=== PATIENT | male | born 1985 | race Caucasian/White ===

== ENCOUNTER 2019-11-09 14:02 | Inpatient (IN) | payer MEDICAID, SELFPAY ==
--- NOTE | 2019-11-09 14:10 | W.ED.GENAD ---
Discharge Plan Disposition Patient Disposition: STILL A PATIENT Condition: Poor Discharge Details Chief Complaint: PsychEval Clinical Impression: Unspecified psychosis, Borderline personality disorder, ADHD, Unspecified personality disorder Admit Date/Time: 11/12/19 08:30 Admit Provider: Asa Wallis Attending Provider: Asa Wallis Primary Care Provider: None,None ED Provider: Leodan Robb Discharge Data Discharge Date/Time-TO BE ENTERED AT DEPARTURE: 11/10/19 13:05 Medical Decision Making <Melissachristina Burtonton - Last Filed: 11/13/19 08:12> 1403: Spoke with Joanna who is a psych liaison with behavioral health she gave me a report on patient and that there has been multiple reports from residents and warehouse stock clerk regarding patient making statements of wanting to harm himself and others. He has been noncompliant with his medications he is only been taking his Wellbutrin per patient report. He is supposed to be taking seizure milligrams gabapentin 3 times daily and 1200 mg gabapentin nightly. He is also supposed be taking methadone, trazodone 100 mg nightly 1-2 as needed. And Trilafon which he is also not been taking. 34-year-old male who lives at a [place] [facility] presents for altered mental status he does have a strong mental health history including unspecified psychosis disorder unspecified borderline personality disorder ADHD and unspecified personality disorder. He was just recently admitted and discharged from [facility] on October 30, reports from residents and clin asst at [place] [facility] [place] include patient mumbling and cussing about people on Facebook and people wanting to kill him. Another resident stated red alert patient was out shouting at someone that was not there the warehouse stock clerk states that the patient was stating that he wanted to rape underage girls in region to his middle and tear him in half another resident quoted patient stating that he wanted to take my rib out and make it into a shank the warehouse stock clerk feels unsafe and feels that this patient is a danger to himself and others. There is also question that he has not been taking his medications as prescribed. He is prescribed trazodone 100 mg nightly 1-2 as needed, Wellbutrin daily, 600 mg gabapentin 3 times daily and 1200 mg of gabapentin nightly and Trilafon which patient is not taking. Upon initial exam patient is denying wanting to harm himself or others, he is denying any auditory or visual hallucinations. He states that he is only taking Wellbutrin at this time. He states that he is not taking the gabapentin or any of the other medications because they are not working. He states that the residents at the treatment facility are talking crap, it is getting out of hand and I am done with it at this time he is cooperative and willing to have blood drawn and have testing done at this time. Labs ordered in order to medically clear patient, behavioral health consult ordered and CPS so sitter ordered. There is a sitter at the bedside at this time. Room is in line of sight nurses station and doors open. Patient did agree to get into a gown/paper scrubs. [facility] KARI Hargrove pending medical clearance and psych evaluation. At the time of this dictation patient was cooperative and calm and hemodynamically stable. <KARI Loja - Last Filed: 11/09/19 22:25> Care was transitioned myself from Pallavi Dimas NP. Please see her initial note regarding presentation, exam and clinical course. Patient's remaining labs are back. Urine has been pending at the time of transfer of care. I am relieved to see that the patient is positive for methadone. He is likely taking the medications if he was initially denying. Patient is also positive for tricyclics. There is unclear what medications the patient had been taking. She continues to be cooperative. Will consult with mental health. One-to-one monitoring is still being performed. Spoke with Joanna again. She had spoken with home care providers. There were multiple episodes of concern including patient talking to people that were not there, not taking medications, instigating altercations with housemates, threatening others, threatening to rape underage girls. Patient escalated to the point that staff did not feel safe to be in the house. While patient is behaving well while here, these witnessed acts and threats are certainly concerning. Patient does have a lengthy psychiatric history. Joanna will call to evaluate the patient but does feel that inpatient treatment would be most appropriate for him. advised that patient is currently voluntarily staying and seeking help. However, should he become unwilling to seek care, we will need to EE him. I was able to listening on the mental health evaluation and the patient did escalate quite quickly when the allegations against him were discussed. He did threaten to rape those men. Shortly after being on the phone, I did evaluate the patient and continues to be resting comfortably. He is eating and drinking, pleasant with staff here. [facility] and [facility] are excepting referrals. Information was sent to their facilities. Patient requesting nicotine gum. Patient reports she has been tired but also agitation needs assistant customer service manager with sleep. 1 mg Ativan given. Despite the Ativan, patient continues to request further medication, 50 mg Benadryl ordered. Despite the above, patient continues to improve and was requesting further assistance with sleep. Patient typically takes 100 mg trazodone nightly. Will prescribe this. Consulted with Dr. Wallis who agrees to admission. He is requested that I place holding orders. Patient will be transferred upstairs with CPS O. Still awaiting callback from referral centers. Patient continues to be voluntary admission to psychiatric facility. <Ran Jackson MD - Last Filed: 11/10/19 07:36> due to staffing issues patient could not go upstairs until the morning. He slept all night and was stable throughout. Discussed with Dr. Wallis and made him aware that he would go upstairs at shift change at 7am. <Leodan Robb MD - Last Filed: 11/10/19 13:40> 34-year-old male signed out to me at change of shift by Dr. Jackson. Patient is awaiting voluntary placement after erratic behavior at [place]. He was signed out pending a COVID screening which has not been sent. It will be sent this morning.. The patients medications were confirmed with the [facility] clinic including Methadone 110mg QD. Allergies to triptans. Patient states to me that the reason he is here is that all his medications are shit. He at times exhibits tangential thoughts. After his morning interview with mental health, patient being agitated and was given an additional dose of lorazepam. He will be admitted to the hospital pending further disposition. HPI <Melissa Acuña - Last Filed: 11/13/19 08:12> General Mode of arrival: ambulatory. Date/Time Provider Initiated Documentation: 11/09/19 14:07. Limitations to Documentation: altered mental status. History of Present Illness described as severe, HPI Narrative: 34-year-old male who lives at [place] presents for altered mental status he does have a strong mental health history including unspecified psychosis disorder unspecified borderline personality disorder ADHD and unspecified personality disorder. He was just recently admitted and discharged from [facility] on October 30, reports from residents and clin [place]st [place] [facility] [place] include patient mumbling and cussing about people on Facebook and people wanting to kill him. Another resident stated red alert patient was out shouting at someone that was not there the warehouse stock clerk states that the patient was stating that he wanted to rape underage girls in region to his middle and tear him in half another resident quoted patient stating that he wanted to take my rib out and make it into a shank the warehouse stock clerk feels unsafe and feels that this patient is a danger to himself and others. There is also question that he has not been taking his medications as prescribed. He is prescribed trazodone 100 mg nightly 1-2 as needed, Wellbutrin daily, 600 mg gabapentin 3 times daily and 1200 mg of gabapentin nightly and Trilafon which patient is not taking. Upon initial exam patient is denying wanting to harm himself or others, he is denying any auditory or visual hallucinations. He states that he is only taking Wellbutrin at this time. He states that he is not taking the gabapentin or any of the other medications because they are not working. He states that the residents at the treatment facility are talking crap, it is getting out of hand and I am done with it at this time he is cooperative and willing to have blood drawn and have testing done at this time. Related Data Home Medications Medication Instructions Recorded Confirmed Trilafon 4 mg PO DAILY 11/10/19 Trilafon 8 mg PO .QHS 11/10/19 albuterol sulfate BID PRN 11/10/19 bupropion HCl 300 mg PO DAILY 11/10/19 11/10/19 gabapentin 1,200 mg PO .QHS 11/10/19 11/10/19 gabapentin 600 mg PO TID 11/10/19 11/10/19 ibuprofen 600 mg PO PRN PRN 11/10/19 11/10/19 loratadine 10 mg PO DAILY 11/10/19 11/10/19 methadone 110 mg PO DAILY 11/10/19 11/10/19 nicotine (polacrilex) mg 11/10/19 perphenazine 2 PO .QHS 11/10/19 trazodone 100 mg PO .QHS 11/10/19 11/10/19 Allergies Allergy/AdvReac Type Severity Reaction Status Date / Time haloperidol [From Haldol] Allergy Hives Unverified 11/09/19 14:19 Review of Systems <Melissa Burtonton - Last Filed: 11/13/19 08:12> Narrative: Constitutional: Negative for weight loss, alert and oriented, well groomed, normal body habitus, appears anxious. HEENT: Denies trauma, headaches, blurry vision, nasal discharge, sore throat, trouble swallowing. Chest: Denies chest pain, palpitations, irregular rhythm, hypertension. Respiratory: Denies Shortness of breath, cough, hemoptysis. GI: Denies abdominal pain, vomiting, diarrhea, constipation. Reports upset stomach : Denies dysuria, hematuria, flank pain, rectal bleeding. Neuro: Denies dizziness, blurry vision, weakness, syncope, headache or facial numbness. Hematologic: Denies easy bruising, intolerance to heat or cold, hair loss. Psychiatric Psychiatric: Reports anxiety, Denies auditory hallucinations (Denies), Reports irritability, Denies visual hallucinations (Denies), Reports homicidal ideation (Denies) and Reports suicidal ideation (Denies) [facility] <Melissa Burtonton Last Filed: 11/13/19 08:12> Social History Smoking/Tobacco Use Status: Current every day Tobacco Type: cigarettes Alcohol Intake: never Do you feel safe at home: Yes Additional Social history: [place] Exam [facility] Filed: 11/13/19 08:12> Narrative Exam Narrative: Constitutional: Alert and oriented x3. Appears stated age. Normal body habitus. Appears anxious is standing in the room not sitting on the bed. Head: Normocephalic, no trauma. Eyes: Pupils PERRLA, Red reflex noted, EOM's intact. Eyelids symmetrical without lesions, discharge, or swelling. ENT: Bilateral TM's WNL, External ear normal to inspection, no mastoid TTP, swelling, or erythema, Nasal turbinates WNL, no nasal discharge. Normal dentition, Posterior pharynx WNL, no exudate. Chest: RRR, Normal S1, S2, distal pulses intact. Resp: Lungs clear to auscultation bilaterally, no wheezes, rales, or rhonchi. Musculoskeletal: Normal gait, 5/5 strength to all four extremities. Skin: No suspicious rashes or lesions. Capillary refill less than 2 sec. Neurologic: Cranial nerves II-XII intact. Alert and oriented x 3. DTR's intact. Hematologic/Lymphatic: No ecchymosis, no lymphadenopathy. Psych Appearance: well kempt Speech and Movement: restless Mood: anxious mood Affect: anxious affect Attitude: cooperative and guarded Thought Content: no hallucinations, no homicidality, no phobias, suicidality and other (Bystander reports of statements regarding harm to himself and others) Other: History of unspecified psychotic disorder, unspecified borderline personality disorder, ADHD, unspecified personality disorder. Sign Out <Melissa Acuña - Last Filed: 11/13/19 08:12> Sign Out Data: Sign Out Comment: Pending medical clearance and psychiatric evaluation. Last updated by Melissa Acuña at 11/09/19 16:08
[2019-11-09 14:12] VITALS: BP 142/88; PULSE 101; RESP 18; TEMP 36.9; O2SAT 97
[2019-11-09 15:19] LABS: Abs Immature Grans 0.02 k/cumm (0.0-0.09); Absolute Basophil Count 0.05 k/cumm (0.0-0.2); Absolute Eosinophil Count 0.15 k/cumm (0.0-0.7); Absolute Lymphocyte Count 2.27 k/cumm (1.2-3.4); Basophils % 0.4; Eosinophils % 1.3; HCT 43.3 % (40.0-50.0); HGB 14.8 g/dL (13.5-17.5); Immature Grans % 0.2 %; Lymphocytes % 19.4; Mean Corp. HGB Concentration 34.2 g/dL (32.0-36.0); Mean Corpuscular Hemoglobin 29.4 pg (27.0-33.0); Mean Corpuscular Volume 86.1 fL (80-95); Mean Platelet Volume 9.6 fL (8.0-11.0); Monocytes % 10.9; Neutrophils % 67.8; Platelet Count 337 x1000/uL (130-400); RBC 5.03 m/cumm (4.50-6.00); RBC Distribution Width 13.3 % (11.8-14.1)
[2019-11-09 15:33] LABS: Absolute Monocyte Count 1.28 k/cumm (0.11-0.7); Absolute Neutrophil Count 7.93 k/cumm (1.2-6.7)
[2019-11-09 15:35] LABS: ALT 78 U/L (16-63); AST 39 U/L (15-37); Albumin 4.2 g/dL (3.4-5.0); Alkaline Phosphatase 94 U/L (46-116); Anion Gap 7.1 mmol/L (3-11); BUN 7 mg/dL (7-18); Bilirubin, Total 0.3 mg/dL (0.2-1.0); CO2 29.9 mmol/L (21.0-32.0); CREATININE 1.17 mg/dL (0.70-1.30); Chloride 98 mmol/L (98-107); Glucose 147 mg/dL (74-106); Potassium 3.8 mmol/L (3.5-5.1); Sodium 135 mmol/L (136-145); Total Protein 8.6 g/dL (6.4-8.2)
--- NOTE | 2019-11-09 15:49 | CMSP_ITS ---
- If Service Date Differs Date of service: 11/09/19 Time of Service: 15:49 Care Management Safety Plan Complaint: Jose is a 34 year old male who is brought to the emergency department by [facility] due to suicidal and homicidal ideation. Jose was reportedly recently discharged home from the [facility] on October 31, 2019. Since his return from the [place], he has been non-compliant with medications, and has been hearing voices, making suicidal and homicidal statements, and having urges to rape young girls. Jose met with Joanna, [facility] crisis screener, in the community earlier this afternoon but he refused to engage with Joanna. He will be re-evaluated once medically cleared. VOLUNTARY FOR INPATIENT PSYCHIATRIC STABILIZATION. Patient is appropriate in all interactions since arriving at [facility]; Patient has demonstrated appropriate coping and communication skills, has articulated his needs and concerns and is fully engaged during staff interactions. Safety plan has been established with patient, and care team, to adhere to patient goals, identify restrictions based on behavioral status, address nutrition, and determine allowed personal belongings, tools for hygiene and personal care. Determine level of activity including ambulation, level of supervision, visitors, and determine privileges based on behaviors and level of engagement by patient. SAFETY PLAN: 1. Will remain on suicide precautions and in paper clothes 2. Will remain in room under direct supervision of one-on-one staff at all times provided by [employer]; FISH, TECHNICAL OPERATIONS SPECIALIST implementation project coordinator. 3. May have paper cups, plates, finger foods as well as a cardboard spoon with which to eat meals. 4. Follow [facility] Management of the Admitted Behavioral Health Patient policy. 5. Comfort bath system only. 6. No personal belongings 7. Visitors-No visitors at this time 8. Activities: None at this time. 9. Bathroom privileges: While in the ED, must be accompanied by staff. If patient is moved to Med/Surg, he will be allowed to use the bathroom in his room without supervision. 10. Phone: No phone privileges at this time. 11. Due to VOLUNTARY status, if patient wishes to leave [facility], the [facility] rodent control worker must be contacted to re-evaluate patient prior to patient exiting the building. Patient is currently voluntarily at [facility] and seeking inpatient admission when a bed becomes available. [facility] Frontline Glaucoma Specialist will continue seeking placement. Please contact the Security Engineer Admeasurer ([phone]) and [facility] Glaucoma Specialist ([phone]) for any needed changes in the Safety Plan. Safety plan has been provided to interdepartmental care team.
[2019-11-09 15:51] LABS: ETHANOL BLOOD < 3.0 mg/dL (<3)
[2019-11-09 15:59] LABS: Salicylate 5.3 mg/dL (2.8-20.0)
[2019-11-09 16:18] LABS: Acetaminophen < 2 ug/mL (10-30)
[2019-11-09 16:25] LABS: Bilirubin Small (Negative); Blood Negative (Negative); Clarity Clear (Clear); Glucose Negative (Negative); Ketones 15 mg/dL (Negative); Leukocyte Esterase Negative (Negative); Nitrite Negative (Negative); Specific Gravity >= 1.030 (1.005-1.025)
[2019-11-09 16:34] LABS: *AMPHETAMINES SCREEN URINE Negative (Negative); *BARBITURATES SCREEN URINE Negative (Negative); *BENZODIAZEPINES SCREEN URINE Negative (Negative); Cannabinoids THC Negative (Negative); Cocaine Screen,Urine Negative (Negative); METHADONE URINE SCREEN POSITIVE (Negative); OPIATES URINE SCREEN Negative (Negative)
[2019-11-09 16:37] LABS: Tricyclic Antidepressants POSITIVE (Negative)
[2019-11-09 16:50] LABS: Bacteria Negative HPF (Negative); C & S Indicated? No; Casts Negative LPF (Negative); Crystals Few Calcium Oxalate HPF (Negative); Epithelial Cells Negative HPF (Negative); Mucus Moderate (Negative); RBC Negative HPF (0-2); WBC 0-2 HPF (0-5)
--- NOTE | 2019-11-09 17:22 | PDOC.MHCN_ITS ---
Date of service: 11/09/19 Time of Service: 17:22 Mental Health Crisis Note Presenting Issue How did you arrive at the ED and why did you come: Assessment started at pm. Kyra arrived to the ER today voluntarily through [facility] after [facility] received concerning calls and text messages that he was making threats to harm other people including raping an unidentified minor child and yelling at unknown people (internal stimuli). Kyra is reported to have not been taking his prescribed medication. Precipitating Factors Kyra is denying SI and HI as well as all allegations made today. There are no observed signs of delusions. Disposition BEHAVIOR: Kyra is agitated and verbally aggressive. He questions this workers ability to do her job and then thanks this worker you did a good job. He makes current threats that maybe I should rape some of the dudes who won't stop agitating me. EYE CONTACT: Initial eye contact was good but quickly it changed when he was not happy with the conversation and then he just set the Ipad down on the bed. MOOD: Agitated, verbally aggressive and threatening. AFFECT: flat affect and angry. APPETITE: Per D's report Not good. SLEEP(trouble falling/staying asleep: Per D's report Not good. Plan This clinician informed Kyra that I had concerns and was not comfortable with him returning to his residence at this time. I offered him a voluntary admission to a hospital which he agreed to. If he changes his mind he was informed that EE papers will be written. I called Vilma Motta and informed her that Kyra was willing to go voluntarily and if he changes his mind we intend to write an EE. I informed her that this note was being written as we speak. She asked if we had Kyra's insurance information and this was shared with her. She denied needing any thing else at this time. Signature Clinician's Name/Title: Jaonna Jhaveri MS, [facility] Emergency Services Clinician
[2019-11-09 21:00] VITALS: BP 138/76; PULSE 91; RESP 18; TEMP 36.8; O2SAT 98
--- NOTE | 2019-11-09 21:17 | PDOC.MHCN_ITS ---
Date of service: 11/09/19 Time of Service: 21:18 Mental Health Crisis Note Presenting Issue How did you arrive at the ED and why did you come: Patient was brought to ER earlier today by [facility] Police Departement due to escalating erratic behaviors and threats. Precipitating Factors It was noted that he had no SI or Hi. Plan This note is to follow up on calls to hospitals for placements. All hospitals notified and [facility] had possible opening beds available. ER staff was contacted and necessary paperwork was being faxed for disposition. Signature Clinician's Name/Title: LISA Grayson [facility] Emergency Services Clinician
[2019-11-09] MEDS: Nicotine 4 MG GUM (21:18)
[2019-11-09] MEDS: Nicotine 4 MG GUM CH (21:47)
[2019-11-09] MEDS: LORazepam 1 MG TAB PO ×2 (21:50→22:52)
[2019-11-09] MEDS: diphenhydrAMINE 25 MG CAP 50 MG PO (22:12)
[2019-11-09] MEDS: OLANZapine 5 MG TAB (23:08)
[2019-11-09] MEDS: traZODone 100 MG TAB PO (23:09)
--- NOTE | 2019-11-10 06:16 | HPE_ITS ---
Date of service: 11/10/19 Time of Service: 06:16 Assessment and Plan Assessment and plan (1) Unspecified psychosis: Status: Acute Assessment and plan: Unspecified psychiatric disturbance. Will await tra nsfer to facility. Will hold on med regimen pending psych eval, prn Ativan for now History of Present Illness History of Present Illness Chief Complaint: combative behavior Narrative: 34 male with multiple psychiatric dxx, just d/c'ed from [facility]. Brought in due to combative and threatening behaviors. Apparently non-compliant with meds. In ER medically cleared, no beds available, held here in ER pending bed here and then pending transfer. Given Ativan, Bednadryl and Trazadone, has been resting quietly since Review of Systems Unobtainable due to mental status [facility] Social History Smoking/Tobacco Use Status: Current every day Tobacco Type: cigarettes Alcohol Intake: never Do you feel safe at home: Yes Additional Social history: patient lives in a jail Meds Home Medications and Allergies Allergies Allergy/AdvReac Type Severity Reaction Status Date / Time haloperidol [From Haldol] Allergy Hives Unverified 11/09/19 14:19 Exam Narrative Exam Narrative: 136/76,91,18, 36.8, 98% RA. HEENT atraumatic; neck supple; lungs clear; heart RRR; abdomen soft and NT extremities w/o edema; neuro sleeping, awakens briefly to voice, moves all 4s Results Labs Result diagrams: 11/09/19 15:05 11/09/19 15:05 Labs: Laboratory Results - last 24 hr 11/09/19 11/09/19 11/09/19 15:05 15:05 15:05 WBC 11.70 H RBC 5.03 Hgb 14.8 Hct 43.3 MCV 86.1 MCH 29.4 MCHC 34.2 RDW 13.3 Plt Count 337 MPV 9.6 Immature Gran % 0.2 Neutrophils % 67.8 Lymphocytes % 19.4 Monocytes % 10.9 Eosinophils % 1.3 Basophils % 0.4 Absolute Neutrophils 7.93 H Absolute Lymphocytes 2.27 Absolute Monocytes 1.28 H Absolute Eosinophils 0.15 Absolute Basophils 0.05 Sodium 135 L Potassium 3.8 Chloride 98 Carbon Dioxide 29.9 Anion Gap 7.1 BUN 7 Creatinine 1.17 Estimated GFR/1.73 m2 >= 60.00 Glucose 147 H Calcium 9.0 Total Bilirubin 0.3 AST 39 H ALT 78 H Alkaline Phosphatase 94 Total Protein 8.6 H Albumin 4.2 TSH 0.70 Urine Color Urine Clarity Urine pH Ur Specific Marshall Urine Protein Urine Ketones Urine Blood Urine Nitrite Urine Bilirubin Urine Urobilinogen Ur Leukocyte Esterase Urine RBC Urine WBC Ur Epithelial Cells Urine Crystals Urine Bacteria Urine Casts Urine Mucus Ur Culture Indicated? Urine Glucose Salicylates 5.3 Urine Opiates Screen Urine Methadone Screen Acetaminophen < 2 Ur Barbiturates Screen Ur Tricyclics Screen Ur Amphetamines Screen U Benzodiazepines Scrn Urine Cocaine Screen Ur THC Screen Ethyl Alcohol < 3.0 11/09/19 11/09/19 15:50 15:50 WBC RBC Hgb Hct MCV MCH MCHC RDW Plt Count MPV Immature Gran % Neutrophils % Lymphocytes % Monocytes % Eosinophils % Basophils % Absolute Neutrophils Absolute Lymphocytes Absolute Monocytes Absolute Eosinophils Absolute Basophils Sodium Potassium Chloride Carbon Dioxide Anion Gap BUN Creatinine Estimated GFR/1.73 m2 Glucose Calcium Total Bilirubin AST ALT Alkaline Phosphatase Total Protein Albumin TSH Urine Color Yellow Urine Clarity Clear Urine pH 6.0 Ur Specific Marshall >= 1.030 H Urine Protein 30 H Urine Ketones 15 H Urine Blood Negative Urine Nitrite Negative Urine Bilirubin Small H Urine Urobilinogen 2.0 H Ur Leukocyte Esterase Negative Urine RBC Negative Urine WBC 0-2 Ur Epithelial Cells Negative Urine Crystals Few calcium oxalate Urine Bacteria Negative Urine Casts Negative Urine Mucus Moderate Ur Culture Indicated? No Urine Glucose Negative Salicylates Urine Opiates Screen Negative Urine Methadone Screen Positive A Acetaminophen Ur Barbiturates Screen Negative Ur Tricyclics Screen Positive A Ur Amphetamines Screen Negative U Benzodiazepines Scrn Negative Urine Cocaine Screen Negative Ur THC Screen Negative Ethyl Alcohol Last Vital Signs Temp 36.8 C 11/09/19 21:00 Pulse 91 H 11/09/19 21:00 Resp 18 11/09/19 21:00 BP 138/76 11/09/19 21:00 Pulse Ox 98 11/09/19 21:00 COVID-19 Screening In the past 14 days, have you traveled outside of [place] or [place]?: NO Had IN PERSON contact w/suspected or confirmed C-19 person: No
[2019-11-10] MEDS: LORazepam 1 MG TAB PO ×5 (08:27→21:05)
[2019-11-10] MEDS: Methadone Liquid 10 MG/ML 110 MG PO (10:10)
[2019-11-10] MEDS: Nicotine 4 MG GUM CH ×3 (12:22→21:05)
--- NOTE | 2019-11-10 13:02 | NUR.NOTE ---
pt refusing to have vs taken. :
[2019-11-10 13:16] VITALS: BP 129/91; PULSE 117; RESP 18; TEMP 36.3; O2SAT 98
--- NOTE | 2019-11-10 13:27 | PDOC.MHCN ---
Date of service: 11/10/19 Time of Service: 12:00 Mental Health Crisis Note Presenting Issue How did you arrive at the ED and why did you come: Patient has been in ED since yesterday and has been on an EE. This clinician visited with him by zoom today to evaluate how he is. He reports he still is angry with his house mates but he does want to get his medications straightened out and is waiting for placement in a psychiatric facility. Precipitating Factors Patient denies SI and HI today but he still alludes to wanting to hurt a housemate. He is delusional, feels that his medication is changing his body. He took off his shirt to show how he hates what is happening and how he is blown up from his medication. Disposition BEHAVIOR: He is calm and oriented to place , at first but his attitude escalates to swearing and yelling after a bit. He is angry and verbally agressive. EYE CONTACT: He varies from looking at the screen to putting it facing toward the ceiling. MOOD: Varies from calm to angry and hostile. AFFECT: His affect is calm at first ant then he gets irritated quickly. APPETITE: He reports he is eating well. SLEEP(trouble falling/staying asleep: He has slept the night. Plan Hospitals have been called and he is being considered at [facility] and [facility] who all indicated there are beds available. Those hospitals have been contacted by this clinician and he is under review at this time. This was reported to Vilma Motta, Hospital Nurse. This clinician will check in with hospitals again today for placement status Provisional Diagnosis Signature Clinician's Name/Title: Doreen Valencia [facility] Emergency Services Clinician
[2019-11-10] MEDS: Gabapentin 600 MG TAB PO (14:57)
--- NOTE | 2019-11-10 17:44 | PDOC.CMSAFE ---
- If Service Date Differs Date of service: 11/10/19 Time of Service: 17:44 Care Management Safety Plan Chief Complaint: Jose remains at [facility] awaiting a voluntary psych placement. He has been calm, cooperative, and sleeping most of the day. attempts to meet with him twice and he is either sleeping or too drowsy to engage in conversation for more than a minute. Referrals have been sent to [facility], [facility], and [facility] for review. There are no available beds today, so Jose will remain at [facility] while [facility] continues to seek placement. VOLUNTARY FOR INPATIENT PSYCHIATRIC STABILIZATION. Patient is appropriate in all interactions since arriving at [facility]; Patient has demonstrated appropriate coping and communication skills, has articulated his needs and concerns and is fully engaged during staff interactions. Safety plan has been established with patient, and care team, to adhere to patient goals, identify restrictions based on behavioral status, address nutrition, and determine allowed personal belongings, tools for hygiene and personal care. Determine level of activity including ambulation, level of supervision, visitors, and determine privileges based on behaviors and level of engagement by patient. SAFETY PLAN: 1. Will remain on suicide precautions and in paper clothes 2. Will remain in room under direct supervision of one-on-one staff at all times provided by [employer]; FISH, AIR BOX TESTER children's service supervisor. 3. May have paper cups, plates, finger foods as well as a cardboard spoon with which to eat meals. 4. Follow [facility] Management of the Admitted Behavioral Health Patient policy. 5. Comfort bath system only. 6. No personal belongings 7. Visitors-No visitors at this time 8. Activities: Television allowed at nursing discretion. [employer] to have possession and control of the remote. 9. Bathroom privileges: Allowed to use the bathroom in his room without supervision. 10. Phone: No phone privileges at this time. 11. Due to VOLUNTARY status, if patient wishes to leave [facility], the [facility] sub assembly team worker must be contacted to re-evaluate patient prior to patient exiting the building. Patient is currently voluntarily at [facility] and seeking inpatient admission when a bed becomes available. [facility] Frontline Crematory Attendant will continue seeking placement. Please contact the Library Helper [employer] Specialists ([phone]) and [facility] Crematory Attendant ([phone]) for any needed changes in the Safety Plan. Safety plan has been provided to interdepartmental care team.
[2019-11-10] MEDS: traZODone 100 MG TAB PO (20:52)
[2019-11-10] MEDS: diphenhydrAMINE 25 MG CAP PO (21:05)
[2019-11-11] MEDS: Methadone Liquid 10 MG/ML 110 MG PO (08:32)
[2019-11-11] MEDS: LORazepam 1 MG TAB PO ×4 (08:40→22:40)
[2019-11-11] MEDS: Nicotine 4 MG GUM CH ×8 (08:59→22:39)
--- NOTE | 2019-11-11 09:04 | PHA.REVIEW ---
Pharmacy Admission Review - Admission Clinical Review (Last Reviewed 11/10/19 @ 06:19 by Asa Wallis MD) Unspecified personality disorder (Acute) ADHD (Acute) Borderline personality disorder (Acute) Unspecified psychosis (Acute) haloperidol [From Haldol] Allergy (Unverified 11/09/19 14:19) Hives Height 5 ft 7 in Weight 108.862 kg - Renal Dosing Renal Dosing: BUN 7 mg/dL (7-18) 11/09/19 15:05 Creatinine 1.17 mg/dL (0.70-1.30) 11/09/19 15:05 Medications needing adjustments: Reviewed (Crcl ~105.7 mL/min using adjusted body weight, current meds okay) - Anticoagulation Anticoagulation: Hgb 14.8 g/dL (13.5-17.5) 11/09/19 15:05 Hct 43.3 % (40.0-50.0) 11/09/19 15:05 Plt Count 337 x1000/uL (130-400) 11/09/19 15:05 Creatinine 1.17 mg/dL (0.70-1.30) 11/09/19 15:05 DVT Prohphylaxis: N/A Therapeutic Anticoagulation: N/A - Opiate Usage Evaluate Pain Scale/Pains Meds: Reviewed Scheduled Bowel Reg ordered if on Opiates?: No (will mention to RETURN TO SERVICE INSPECTOR) - Relevant Labs Sodium 135 mmol/L (136-145) L 11/09/19 15:05 Potassium 3.8 mmol/L (3.5-5.1) 11/09/19 15:05 Chloride 98 mmol/L (98-107) 11/09/19 15:05 Electrolytes, C-Reactive P, ESR: Reviewed - DM Control DM Control: Glucose 147 mg/dL (74-106) H 11/09/19 15:05 Insulin Dosing: N/A - Heart Failure/NE EF%, ANJELICA's, B-Blockers, Diuretics: N/A - BP Control If elevated: N/A - Qtc Review If Elevated: N/A - IV to PO Switch IV Medications: N/A - Home Meds Home Med List reviewed: Reviewed (multiple HEALTHCARE EDUCATOR depressants: gabapentin, loratadine, methadone, perphenazine, trazodone. Avoid concomitant use of HEALTHCARE EDUCATOR depressants when possible; if combined limit dosages and duration when possible and monitor closely for adverse effects. Bupropion may decrease the metabolism of perphenazine; consider alternatives or dosage adjustments and monitor for adverse effects.) Relevent Home Meds Not ordered & why?: albuterol (PRN), ibuprofen (PRN) - Current meds Current Medication Order Review: Intervened (discontinued DM orders) - Comments Comments/Follow Ups: waiting for placement
[2019-11-11 09:13] VITALS: BP 128/96; PULSE 133; RESP 18; TEMP 36.9; O2SAT 97
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
[2019-11-11 09:40] VITALS: PULSE 109
--- NOTE | 2019-11-11 11:07 | CMSP_ITS ---
- If Service Date Differs Date of service: 11/11/19 Time of Service: 11:08 Care Management Safety Plan VOLUNTARY FOR INPATIENT PSYCHIATRIC STABILIZATION. Patient is appropriate in all interactions since arriving at [facility]; Patient has demonstrated appropriate coping and communication skills, has articulated his needs and concerns and is fully engaged during staff interactions. 11/11/2019 - Revised Safety plan has been established with patient, and care te am, to adhere to patient goals, identify restrictions based on behavioral status, address nutrition, and determine allowed personal belongings, tools for hygiene and personal care. Determine level of activity including ambulation, level of supervision, visitors, and determine privileges based on behaviors and level of engagement by patient. SAFETY PLAN: 1. Will remain on suicide precautions and in paper clothes 2. Will remain in room under direct supervision of one-on-one staff at all times provided by [employer]; FISH, SALESPERSON CORSETS match up worker. 3. May have paper cups, plates, finger foods as well as a cardboard spoon with which to eat meals. 4. Follow [facility] Management of the Admitted Behavioral Health Patient policy. 5. May take a shower with supervision. 6. No personal belongings 7. Visitors-No visitors at this time 8. Activities: Television allowed at nursing discretion. [employer]PSO to have possession and control of the remote. 9. Bathroom privileges: Allowed to use the bathroom in his room without supervision. 10. Phone: No phone privileges at this time. 11. Due to VOLUNTARY status, if patient wishes to leave [facility], the [facility] Crisis w orker must be contacted to re-evaluate patient prior to patient exiting the building. Patient is currently voluntarily at [facility] and seeking inpatient admission when a bed becomes available. [facility] Frontline Floor Trader will continue seeking placement. Please contact the [employer] Se[employer] Plant Manager Transit Specialist ([phone]) and [facility] Floor Trader ([phone]) for any needed changes in the Safety Plan. Safety plan has been provided to interdepartmental care team.
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
[2019-11-11 14:21] LABS: COVID-19 RT-PCR UVMMC Result Negative (Negative)
[2019-11-11 16:02] VITALS: BP 141/91; PULSE 117; RESP 20; TEMP 36.8; O2SAT 94
--- NOTE | 2019-11-11 16:15 | W.INMHPGNOTE ---
Date of service: 11/11/19 Time of Service: 09:35 Mental Health Crisis Note Presenting Issue How did you arrive at the ED and why did you come: Patient KERON has been in hospital in ER since Tuesday and he is now on the med surg floor, second floor .
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
[2019-11-11] MEDS: Gabapentin 600 MG TAB PO (18:49)
[2019-11-11] MEDS: traZODone 100 MG TAB PO (22:40)
[2019-11-12 00:10] VITALS: BP 130/92; PULSE 112; RESP 20; TEMP 36.2; O2SAT 97
[2019-11-12] MEDS: LORazepam 1 MG TAB PO ×4 (08:08→22:43)
[2019-11-12] MEDS: Nicotine 4 MG GUM CH ×6 (08:09→20:30)
--- NOTE | 2019-11-12 08:45 | PDOC.CMSAFE ---
- If Service Date Differs Date of service: 11/12/19 Time of Service: 11:00 Care Management Safety Plan VOLUNTARY FOR INPATIENT PSYCHIATRIC STABILIZATION. Patient is appropriate in all interactions since arriving at [facility]; Patient has demonstrated appropriate coping and communication skills, has articulated his needs and concerns and is fully engaged during staff interactions. 11/12/2019 - Safety plan has been established with patient, and care team, to adhere to patient goals, identify restrictions based on behavioral status, address nutrition, and determine allowed personal belongings, tools for hygiene and personal care. Determine level of activity including ambulation, level of supervision, visitors, and determine privileges based on behaviors and level of engagement by patient. SAFETY PLAN: 1. Will remain on suicide precautions and in paper clothes 2. Will remain in room under direct supervision of one-on-one staff at all times provided by [employer]; FISH, BREAKER UP MACHINE OPERATOR plastering contractor. 3. May have paper cups, plates, finger foods as well as a cardboard spoon with which to eat meals. 4. Follow [facility] Management of the Admitted Behavioral Health Patient policy. 5. May take a shower with supervision. 6. Belongings: Has his watch on. 7. Visitors-No visitors at this time 8. Activities: Television allowed at nursing discretion. CPSO to have possession and control of the remote. Permitted activity books, coloring pages, crayons. 9. Bathroom privileges: Allowed to use the bathroom in his room without supervision. 10. Phone: limited to legal contact at this time. 11. Due to VOLUNTARY status, if patient wishes to leave [facility], the [facility] automotive production worker must be contacted to re-evaluate patient prior to patient exiting the building. Patient is currently voluntarily at [facility] and seeking inpatient admission when a bed becomes available. [facility] Frontline Executor Of Estate will continue seeking placement. Please contact the Gospel Worker Mud Analysis Operator ([phone]) and [facility] Executor Of Estate ([phone]) for any needed changes in the Safety Plan. Safety plan has been provided to interdepartmental care team.
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
[2019-11-12] MEDS: Methadone Liquid 10 MG/ML 110 MG PO (09:29)
[2019-11-12 09:51] VITALS: BP 143/105; PULSE 118; RESP 16; TEMP 37.2; O2SAT 96
--- NOTE | 2019-11-12 10:09 | MHPN_ITS ---
Date of service: 11/12/19 Time of Service: 10:09 Mental Health Crisis Note Presenting Issue How did you arrive at the ED and why did you come: Kyra arrived voluntarily Tuesday via [place] [employer] after [facility] received calls and text messages that he was acting unsafely. Precipitating Factors Kyra denies SI and HI. He is not presenting as delusional during this interview however, has a hx of such symptoms and was reported to be behaving that way at [facility]. Disposition BEHAVIOR: Kyra is not engaging initially with the interview but does eventually open up and share why he is at [facility] and his interpretation of what took place to get him there. He still does not fully see the impact his behaviors had on the safety of others in his home. He reports that he was simply repeating what other housemates were saying to him. Kyra engaged in communicating what he feels his needs are regarding medications and what his current medications are not working. EYE CONTACT: Kyra makes good eye contact through out the interview. MOOD: Initial Kyra's mood was avoidant and not interested. Once we got throug hthe why he was there he was able to be more animated about his needs verbally. AFFECT: Kyra's affect remains flat. Plan Kyra will remain at [facility] pending a voluntary admission. He understands that whatever hospital has available space he will be going to. Aleah will speak to hospitalist about ADHD medications and methadone dose per D's request. Kyra will be re-screeened tomorrow by [facility] and this clinician will continue to communicate with [facility] regarding placement support. This clinician asked Aleah if there was anything else she needed from [facility] and she denied she needed anything else at this time. Antelope back from [facility] and they will try to work with [facility] however they are a private hospital so can refuse anyone they choose. Signature Clinician's Name/Title: Joanna Jhaveri MS, [facility] Emergency Services Clinician
--- NOTE | 2019-11-12 10:37 | W.PM.PROGNOT ---
Date of Service Date of service: 11/12/19 Time of Service: 10:37 Assessment and Plan Assessment and plan (1) Unspecified psychosis: Start date: 11/12/19 Start time: 10:56 Status: Acute Assessment and plan: Unspecified psychiatric disturbance. Calm and cooperative today, requesting medication (see note). Ambulatory pacing around room. Appears to be slightly anxious. Awaiting bed, not threatening at this time. Not suicidal or homicidal at this time. 1:1 observer at this time. No bed availability today. Above case discussed with Dr. Lanza who agrees with plan Subjective Subjective Patient reports: other Interval history since last seen: No thoughts of SI or HI, articulates medication needs. States racing thoughts about getting a car, home and life. Refusing to take some of his schedule medications. Patient continues to ask for ADHD medication. No record of medications through [facility]. Ambulatory around room, independent with ADLs. Denies Cp, SOB, N/V/D Exam Narrative Exam Narrative: Const: Ambulatory around room. RA. HEENT atraumatic; neck supple; lungs clear; heart tachy with regular rhythm; abdomen soft and NT extremities w/o edema; neuro AAO answering questions appropriately, awakens briefly to voice, moves all 4s Objective Objective Clinical Data: Vital Signs Temperature 37.2 C 11/12/19 09:51 Temperature Source Tympanic 11/12/19 09:51 Pulse 118 H 11/12/19 09:51 Pulse Rhythm Regular 11/12/19 08:30 Respiratory Rate 16 11/12/19 09:51 Respiratory Effort Non-Labored 11/12/19 08:30 Respiratory Depth Normal 11/12/19 08:30 Respiratory Pattern Normal 11/12/19 08:30 Blood Pressure 143/105 H 11/12/19 09:51 Blood Pressure Position Standing 11/09/19 14:12 Pulse Oximetry 96 11/12/19 09:51 Oxygen Delivery Method Room Air 11/12/19 09:51 Oxygen Flow Rate 0 11/12/19 09:51 Pain Level 0 11/12/19 09:51 Comment 11/12/19 09:51 Intake & Output 11/11/19 11/11/19 11/12/19 11:59 23:59 11:59 Intake Total 2300 / 3980 1680 / 3980 700 / 700 Balance 2300 / 3980 1680 / 3980 700 / 700 Intake: Oral 2300 / 3980 168 / 0 / 700 Other: Urine Color Yellow Yellow Urine Appearance Clear Clear Comment per patient independant Stool Characteristics Soft Brown Voiding Methods Toilet Toilet Laboratory Results WBC 11.70 k/cumm (4.4-10.8) H 11/09/19 15:05 RBC 5.03 m/cumm (4.50-6.00) 11/09/19 15:05 Hgb 14.8 g/dL (13.5-17.5) 11/09/19 15:05 Hct 43.3 % (40.0-50.0) 11/09/19 15:05 MCV 86.1 fL (80-95) 11/09/19 15:05 MCH 29.4 pg (27.0-33.0) 11/09/19 15:05 MCHC 34.2 g/dL (32.0-36.0) 11/09/19 15:05 RDW 13.3 % (11.8-14.1) 11/09/19 15:05 Plt Count 337 x1000/uL (130-400) 11/09/19 15:05 MPV 9.6 fL (8.0-11.0) 11/09/19 15:05 Immature Gran % 0.2 % 11/09/19 15:05 Neutrophils % 67.8 11/09/19 15:05 Lymphocytes % 19.4 11/09/19 15:05 Monocytes % 10.9 11/09/19 15:05 Eosinophils % 1.3 11/09/19 15:05 Basophils % 0.4 11/09/19 15:05 Absolute Neutrophils 7.93 k/cumm (1.2-6.7) H 11/09/19 15:05 Absolute Lymphocytes 2.27 k/cumm (1.2-3.4) 11/09/19 15:05 Absolute Monocytes 1.28 k/cumm (0.11-0.7) H 11/09/19 15:05 Absolute Eosinophils 0.15 k/cumm (0.0-0.7) 11/09/19 15:05 Absolute Basophils 0.05 k/cumm (0.0-0.2) 11/09/19 15:05 Sodium 135 mmol/L (136-145) L 11/09/19 15:05 Potassium 3.8 mmol/L (3.5-5.1) 11/09/19 15:05 Chloride 98 mmol/L (98-107) 11/09/19 15:05 Carbon Dioxide 29.9 mmol/L (21.0-32.0) 11/09/19 15:05 Anion Gap 7.1 mmol/L (3-11) 11/09/19 15:05 BUN 7 mg/dL (7-18) 11/09/19 15:05 Creatinine 1.17 mg/dL (0.70-1.30) 11/09/19 15:05 Estimated GFR/1.73 m2 >= 60.00 (mL/min/1.73m2) 11/09/19 15:05 Glucose 147 mg/dL (74-106) H 11/09/19 15:05 Calcium 9.0 mg/dL (8.5-10.1) 11/09/19 15:05 Total Bilirubin 0.3 mg/dL (0.2-1.0) 11/09/19 15:05 AST 39 U/L (15-37) H 11/09/19 15:05 ALT 78 U/L (16-63) H 11/09/19 15:05 Alkaline Phosphatase 94 U/L (46-116) 11/09/19 15:05 Total Protein 8.6 g/dL (6.4-8.2) H 11/09/19 15:05 Albumin 4.2 g/dL (3.4-5.0) 11/09/19 15:05 TSH 0.70 uIU/mL (0.36-3.74) 11/09/19 15:05 Urine Color Yellow (Yellow) 11/09/19 15:50 Urine Clarity Clear (Clear) 11/09/19 15:50 Urine pH 6.0 (5-8) 11/09/19 15:50 Ur Specific [place] >= 1.030 (1.005-1.025) H 11/09/19 15:50 Urine Protein 30 mg/dL (Negative) H 11/09/19 15:50 Urine Ketones 15 mg/dL (Negative) H 11/09/19 15:50 Urine Blood Negative (Negative) 11/09/19 15:50 Urine Nitrite Negative (Negative) 11/09/19 15:50 Urine Bilirubin Small (Negative) H 11/09/19 15:50 Urine Urobilinogen 2.0 EU/dL (Up TO 0.2) H 11/09/19 15:50 Ur Leukocyte Esterase Negative (Negative) 11/09/19 15:50 Urine RBC Negative HPF (0-2) 11/09/19 15:50 Urine WBC 0-2 HPF (0-5) 11/09/19 15:50 Ur Epithelial Cells Negative HPF (Negative) 11/09/19 15:50 Urine Crystals Few calcium oxalate HPF (Negative) 11/09/19 15:50 Urine Bacteria Negative HPF (Negative) 11/09/19 15:50 Urine Casts Negative LPF (Negative) 11/09/19 15:50 Urine Mucus Moderate (Negative) 11/09/19 15:50 Ur Culture Indicated? No 11/09/19 15:50 Urine Glucose Negative mg/dL (Negative) 11/09/19 15:50 Salicylates 5.3 mg/dL (2.8-20.0) 11/09/19 15:05 Urine Opiates Screen Negative (Negative) 11/09/19 15:50 Urine Methadone Screen Positive (Negative) A 11/09/19 15:50 Acetaminophen < 2 ug/mL (10-30) 11/09/19 15:05 Ur Barbiturates Screen Negative (Negative) 11/09/19 15:50 Ur Tricyclics Screen Positive (Negative) A 11/09/19 15:50 Ur Amphetamines Screen Negative (Negative) 11/09/19 15:50 U Benzodiazepines Scrn Negative (Negative) 11/09/19 15:50 Urine Cocaine Screen Negative (Negative) 11/09/19 15:50 Ur THC Screen Negative (Negative) 11/09/19 15:50 Ethyl Alcohol < 3.0 mg/dL (<3) 11/09/19 15:05 COVID-19 PCR Negative (Negative) 11/10/19 08:05 Nasopharyn COVID-19 PCR Not Applicable 11/10/19 08:05 Ref Test Perform Site [facility] hospital lab 11/10/19 08:05
--- NOTE | 2019-11-12 15:08 | W.NUTRFU ---
Date of service: 11/12/19 Time of Service: 15:08 Nutritional Follow up NOTE: 34 year old male admitted with pscychosis. Following regular diet with excellent intake. Not at risk for nutritional decline. will follow prn. Time Spent in Nutritional Counseling and Treatment: 0
[2019-11-12 15:35] VITALS: BP 120/83; PULSE 101; RESP 18; TEMP 36.8; O2SAT 95
[2019-11-12 19:18] VITALS: BP 118/85; PULSE 133; RESP 19; TEMP 37; O2SAT 97
[2019-11-12] MEDS: traZODone 100 MG TAB PO (22:31)
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
[2019-11-13 09:25] VITALS: BP 122/89; PULSE 128; RESP 18; TEMP 36.5; O2SAT 100
[2019-11-13] MEDS: LORazepam 1 MG TAB PO ×3 (09:26→16:28)
[2019-11-13] MEDS: Methadone Liquid 10 MG/ML 110 MG PO (09:48)
[2019-11-13] MEDS: Nicotine 4 MG GUM CH ×4 (09:48→17:19)
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
--- NOTE | 2019-11-13 13:11 | PGE_ITS ---
Date of Service Date of service: 11/13/19 Time of Service: 13:11 Assessment and Plan Assessment and plan (1) Suicidal ideation: Status: Acute (2) Unspecified psychosis: Status: Acute (3) Borderline personality disorder: Status: Acute Subjective Subjective Patient reports: no new complaints Objective Objective Clinical Data: Vital Signs Temperature 36.5 C 11/13/19 09:25 Temperature Source Tympanic 11/13/19 09:25 Pulse 128 H 11/13/19 09:25 Pulse Rhythm Regular 11/12/19 19:37 Respiratory Rate 18 11/13/19 09:25 Respiratory Effort Non-Labored 11/12/19 19:37 Respiratory Depth Normal 11/12/19 19:37 Respiratory Pattern Normal 11/12/19 19:37 Blood Pressure 122/89 11/13/19 09:25 Blood Pressure Position Standing 11/09/19 14:12 Pulse Oximetry 100 11/13/19 09:25 Oxygen Delivery Method Room Air 11/13/19 09:25 Oxygen Flow Rate 0 11/13/19 09:25 Pain Level 2 11/13/19 09:25 Comment 11/12/19 09:51 Intake & Output 11/12/19 11/13/19 11/13/19 23:59 11:59 23:59 Intake Total 1000 / 1700 540 / 540 Balance 1000 / 1700 540 / 540 Intake: Oral 1000 / 1700 540 / 540 Other: Urine Color Pale Yellow Urine Appearance Clear Clear Urine Odor None Comment amount unknown independant Stool Size Moderate Stool Characteristics Soft Brown Voiding Methods Toilet Toilet Laboratory Results WBC 11.70 k/cumm (4.4-10.8) H 11/09/19 15:05 RBC 5.03 m/cumm (4.50-6.00) 11/09/19 15:05 Hgb 14.8 g/dL (13.5-17.5) 11/09/19 15:05 Hct 43.3 % (40.0-50.0) 11/09/19 15:05 MCV 86.1 fL (80-95) 11/09/19 15:05 MCH 29.4 pg (27.0-33.0) 11/09/19 15:05 MCHC 34.2 g/dL (32.0-36.0) 11/09/19 15:05 RDW 13.3 % (11.8-14.1) 11/09/19 15:05 Plt Count 337 x1000/uL (130-400) 11/09/19 15:05 MPV 9.6 fL (8.0-11.0) 11/09/19 15:05 Immature Gran % 0.2 % 11/09/19 15:05 Neutrophils % 67.8 11/09/19 15:05 Lymphocytes % 19.4 11/09/19 15:05 Monocytes % 10.9 11/09/19 15:05 Eosinophils % 1.3 11/09/19 15:05 Basophils % 0.4 11/09/19 15:05 Absolute Neutrophils 7.93 k/cumm (1.2-6.7) H 11/09/19 15:05 Absolute Lymphocytes 2.27 k/cumm (1.2-3.4) 11/09/19 15:05 Absolute Monocytes 1.28 k/cumm (0.11-0.7) H 11/09/19 15:05 Absolute Eosinophils 0.15 k/cumm (0.0-0.7) 11/09/19 15:05 Absolute Basophils 0.05 k/cumm (0.0-0.2) 11/09/19 15:05 Sodium 135 mmol/L (136-145) L 11/09/19 15:05 Potassium 3.8 mmol/L (3.5-5.1) 11/09/19 15:05 Chloride 98 mmol/L (98-107) 11/09/19 15:05 Carbon Dioxide 29.9 mmol/L (21.0-32.0) 11/09/19 15:05 Anion Gap 7.1 mmol/L (3-11) 11/09/19 15:05 BUN 7 mg/dL (7-18) 11/09/19 15:05 Creatinine 1.17 mg/dL (0.70-1.30) 11/09/19 15:05 Estimated GFR/1.73 m2 >= 60.00 (mL/min/1.73m2) 11/09/19 15:05 Glucose 147 mg/dL (74-106) H 11/09/19 15:05 Calcium 9.0 mg/dL (8.5-10.1) 11/09/19 15:05 Total Bilirubin 0.3 mg/dL (0.2-1.0) 11/09/19 15:05 AST 39 U/L (15-37) H 11/09/19 15:05 ALT 78 U/L (16-63) H 11/09/19 15:05 Alkaline Phosphatase 94 U/L (46-116) 11/09/19 15:05 Total Protein 8.6 g/dL (6.4-8.2) H 11/09/19 15:05 Albumin 4.2 g/dL (3.4-5.0) 11/09/19 15:05 TSH 0.70 uIU/mL (0.36-3.74) 11/09/19 15:05 Urine Color Yellow (Yellow) 11/09/19 15:50 Urine Clarity Clear (Clear) 11/09/19 15:50 Urine pH 6.0 (5-8) 11/09/19 15:50 Ur Specific [place] >= 1.030 (1.005-1.025) H 11/09/19 15:50 Urine Protein 30 mg/dL (Negative) H 11/09/19 15:50 Urine Ketones 15 mg/dL (Negative) H 11/09/19 15:50 Urine Blood Negative (Negative) 11/09/19 15:50 Urine Nitrite Negative (Negative) 11/09/19 15:50 Urine Bilirubin Small (Negative) H 11/09/19 15:50 Urine Urobilinogen 2.0 EU/dL (Up TO 0.2) H 11/09/19 15:50 Ur Leukocyte Esterase Negative (Negative) 11/09/19 15:50 Urine RBC Negative HPF (0-2) 11/09/19 15:50 Urine WBC 0-2 HPF (0-5) 11/09/19 15:50 Ur Epithelial Cells Negative HPF (Negative) 11/09/19 15:50 Urine Crystals Few calcium oxalate HPF (Negative) 11/09/19 15:50 Urine Bacteria Negative HPF (Negative) 11/09/19 15:50 Urine Casts Negative LPF (Negative) 11/09/19 15:50 Urine Mucus Moderate (Negative) 11/09/19 15:50 Ur Culture Indicated? No 11/09/19 15:50 Urine Glucose Negative mg/dL (Negative) 11/09/19 15:50 Salicylates 5.3 mg/dL (2.8-20.0) 11/09/19 15:05 Urine Opiates Screen Negative (Negative) 11/09/19 15:50 Urine Methadone Screen Positive (Negative) A 11/09/19 15:50 Acetaminophen < 2 ug/mL (10-30) 11/09/19 15:05 Ur Barbiturates Screen Negative (Negative) 11/09/19 15:50 Ur Tricyclics Screen Positive (Negative) A 11/09/19 15:50 Ur Amphetamines Screen Negative (Negative) 11/09/19 15:50 U Benzodiazepines Scrn Negative (Negative) 11/09/19 15:50 Urine Cocaine Screen Negative (Negative) 11/09/19 15:50 Ur THC Screen Negative (Negative) 11/09/19 15:50 Ethyl Alcohol < 3.0 mg/dL (<3) 11/09/19 15:05 COVID-19 PCR Negative (Negative) 11/10/19 08:05 Nasopharyn COVID-19 PCR Not Applicable 11/10/19 08:05 Ref Test Perform Site [facility] hospital lab 11/10/19 08:05
--- NOTE | 2019-11-13 15:54 | W.PM.DS.N ---
Date of service: 11/13/19 Time of Service: 15:54 DS: Diagnosis Discharge Diagnosis (1) Suicidal ideation: Status: Acute (2) Unspecified psychosis: Status: Acute (3) Borderline personality disorder: Status: Acute Discharge Plan Disposition Patient Disposition: [facility] Condition: Good Discharge Details Chief Complaint: PsychEval Clinical Impression: Unspecified psychosis, Borderline personality disorder, ADHD, Unspecified personality disorder Reason For Visit: PERSONALITY DISORDER Admit Date/Time: 11/12/19 08:30 Admit Provider: Asa Wallis Attending Provider: Asa Wallis Primary Care Provider: None,None ED Provider: Leodan Robb Hospital Course Hospital Course: This is a 34 male with multiple psychiatric diagnosis, recently discharged from [facility] into a detention setting. He was brought to the emergency department due to combative and threatening behaviors. Reports of non-compliance with medications. In the emergency department he was medically cleared but their were no beds available so he was admitted here under voluntary status awaiting inpatient psychiatric treatment. He was given Ativan, Bednadryl and Trazadone, and has not had any behavioral disturbances since. He has been cooperative. He is eating and drinking and bowels and bladder functioning well. He remains medically stable, with no fevers, cough or c/o. A bed has been secured at [facility] and he will be transferred by ground with roll bucker. Home Meds and New Rx's Prescriptions: Continued gabapentin 600 mg tablet 600 mg PO TID RF: 0 trazodone 100 mg tablet 100 mg PO .QHS RF: 0 perphenazine 4 mg tablet 2 PO .QHS RF: 0 ibuprofen 600 mg tablet 600 mg PO PRN PRNRF: 0 loratadine 10 mg tablet 10 mg PO DAILY RF: 0 bupropion HCl 300 mg tablet extended release 24 hr 300 mg PO DAILY RF: 0 nicotine (polacrilex) 4 mg gum RF: 0 albuterol sulfate 1.25 mg/3 mL solution for nebulization BID PRNRF: 0 gabapentin 600 mg Tablet 1,200 mg PO .QHS RF: 0 Trilafon 8 mg PO .QHS RF: 0 Trilafon 4 mg PO DAILY RF: 0 methadone 5 mg/5 mL Solution 110 mg PO DAILY RF: 0 Discharge Instructions Instructions: Suicide Prevention (DC) Activity:: Activity as Tolerated Equipment/Supplies:: No Equipment Needed Diet:: As Tolerated Discharge Orders Discharge Orders: Discharge Order (Routine); Ordered 11/13/19 Ordered By: Bronwyn Merida DS: Summary Status at Discharge Functional status at discharge: independent ambulation Overall status at discharge: patient is not back to baseline Mental Status: mental status grossly normal Speech and Movement: speech and movement normal Mood: congruent mood Affect: normal affect Exam Psych Mental Status: mental status grossly normal Speech and Movement: speech and movement normal Mood: congruent mood Affect: normal affect DS: Data Vitals/I&O Vitals and I&O: Vital Signs Temperature 36.5 C 11/13/19 09:25 Temperature Source Tympanic 11/13/19 09:25 Pulse 128 H 11/13/19 09:25 Pulse Rhythm Regular 11/13/19 09:00 Respiratory Rate 18 11/13/19 09:25 Respiratory Effort Non-Labored 11/13/19 09:00 Respiratory Depth Normal 11/13/19 09:00 Respiratory Pattern Normal 11/13/19 09:00 Blood Pressure 122/89 11/13/19 09:25 Blood Pressure Position Standing 11/09/19 14:12 Pulse Oximetry 100 11/13/19 09:25 Oxygen Delivery Method Room Air 11/13/19 09:25 Oxygen Flow Rate 0 11/13/19 09:25 Pain Level 2 11/13/19 09:25 Comment 11/12/19 09:51 Intake & Output 11/12/19 11/13/19 11/13/19 23:59 11:59 23:59 Intake Total 1000 / 1700 540 / 540 Balance 1000 / 1700 540 / 540 Intake: Oral 1000 / 1700 540 / 540 Other: Urine Color Pale Yellow Urine Appearance Clear Clear Urine Odor None Comment amount unknown independant Stool Size Moderate Stool Characteristics Soft Brown Voiding Methods Toilet Toilet PFSH Social History Smoking/Tobacco Use Status: Current every day Tobacco Type: cigarettes Alcohol Intake: never Do you feel safe at home: Yes Additional Social history: patient lives in a detention
== END 2019-11-13 17:20 | disposition short-term general hospital (02) | DRG 885 ==
LOC: ER 11-10 07:55 → MS 11-10 13:13
PROVIDERS: Registered Nurse Emergency; Admitting Provider General Practice; Emergency Provider Emergency Medicine; Visit Provider Internal Medicine
DX: F23 Brief psychotic disorder (principal); R45.851 Suicidal ideations; F11.20 Opioid dependence, uncomplicated; F60.3 Borderline personality disorder; F91.8 Other conduct disorders; Z75.1 Person awaiting admission to adequate facility elsewhere; Z91.14 Patient's other noncompliance with medication regimen; F17.210 Nicotine dependence, cigarettes, uncomplicated
CPT/HCPCS: 36415; 80053; 80307; 99222; 99226; 99233; 99239; 99285; U0003; 80320; 80329; 81003; 81015; 84443; 85025; 99218; 99284; G0378

== ENCOUNTER 2019-11-22 07:20 | Emergency (ER) | payer MEDICAID, SELFPAY ==
[2019-11-22 07:22] VITALS: BP 153/104; PULSE 118; RESP 20; O2SAT 94
--- NOTE | 2019-11-22 07:43 | ED.GENADUL_ITS ---
Discharge Plan Disposition Patient Disposition: HOME Condition: Stable Discharge Details Chief Complaint: PsychEval Clinical Impression: Depression Primary Care Provider: None,None ED Provider: Chan Hernandez Meds and New Rx's Prescriptions: Continued perphenazine 8 mg Tablet 8 mg QHS RF: 0 fluticasone prp-sod.chl,bicarb 50 mcg- 0.9 % Kit,Independence Suspension And Independence 1 ea INTRANASAL BID RF: 0 gabapentin 600 mg tablet 600 mg PO TID RF: 0 trazodone 100 mg tablet 100 mg PO .QHS RF: 0 perphenazine 4 mg tablet 4 mg PO DAILY PRNRF: 0 ibuprofen 600 mg tablet 600 mg PO PRN PRNRF: 0 loratadine 10 mg tablet 10 mg PO DAILY RF: 0 bupropion HCl 300 mg tablet extended release 24 hr 300 mg PO DAILY RF: 0 nicotine (polacrilex) 4 mg gum 4 mg RF: 0 albuterol sulfate 1.25 mg/3 mL solution for nebulization BID PRNRF: 0 gabapentin 600 mg Tablet 1,200 mg PO .QHS RF: 0 Trilafon 8 mg PO .QHS RF: 0 Trilafon 4 mg PO DAILY RF: 0 methadone 5 mg/5 mL Solution 110 mg PO DAILY RF: 0 Discharge Instructions Additional Instructions: Please follow-up with [facility]. Please contact your primary care physician to arrange follow-up. Return to the ER for any worsening or new concerning symptoms. [place] [facility] Discharge Data Discharge Date/Time-TO BE ENTERED AT DEPARTURE: 11/22/19 10:35 Medical Decision Making <Chan Hernandez MD - Last Filed: 11/22/19 08:06> Patient here for mental health eval. He has no physical complaints. He had a recent admission to [facility]. We will have to get discharge summary. Will get urine drug screen. Will need mental health eval. C[employer] ordered. Case turned over to Dr. Stacy oncoming physician. <Danielito Stacy MD - Last Filed: 11/23/19 19:07> Received signout from Dr. Hernandez at 8 AM with plan to follow-up on recommendations from [facility] crisis screener. I obtained and reviewed discharge summary from [facility] which noted that patient was stabilized and discharged. I spoke with the crisis screener, Stormy, who evaluated the patient and feels no indication for hospitalization and recommends discharge with outpatient follow- up. Patient has remained stable here in the emergency department during evaluation. He has refused assistance with housing and refusing to sign discharge paperwork. Usual and customary discharge instructions were reviewed with the patient. He was encouraged to return immediately should have any worsening or new concerning symptoms. HPI <Chan Hernandez MD - Last Filed: 11/22/19 08:06> General Mode of arrival: EMS . Date/Time Provider Initiated Documentation: 11/22/19 07:40 . Limitations to Documentation: no limitations . Information obtained by: patient, RN notes reviewed and old records reviewed . HPI Narrative: Patient presents to ED by ambulance after he went to [facility] [employer] complaining of not wanting to live. Patient was seen here earlier this month. He was transferred to [facility] where he had a psychiatric admission. Unclear when he was released. Currently homeless as the residential treatment program he was in would not take him back. He is not really answering questions directly. He is very soft-spoken and difficult to hear. He is denying wanting to harm anyone. He denies wanting to actively harm himself he does not want to live anymore. He reports over and over that he wants help because he has so many problems. However, he is unable to elucidate on any of these. He admits to drug use including methamphetamine. He has not been taking his prescribed amount. He denies alcohol use. Related Data Home Medications Medication Instructions Recorded Confirmed Trilafon 4 mg PO DAILY 11/10/19 Trilafon 8 mg PO .QHS 11/10/19 albuterol sulfate BID PRN 11/10/19 bupropion HCl 300 mg PO DAILY 11/10/19 11/22/19 gabapentin 1,200 mg PO .QHS 11/10/19 11/22/19 gabapentin 600 mg PO TID 11/10/19 11/22/19 ibuprofen 600 mg PO PRN PRN 11/10/19 11/22/19 loratadine 10 mg PO DAILY 11/10/19 11/22/19 methadone 110 mg PO DAILY 11/10/19 11/10/19 nicotine (polacrilex) 4 mg 11/10/19 perphenazine 4 mg PO DAILY PRN 11/10/19 11/22/19 trazodone 100 mg PO .QHS 11/10/19 11/22/19 fluticasone prp-sod.chl,bicarb 1 ea INTRANASAL BID 11/22/19 11/22/19 perphenazine 8 mg QHS 11/22/19 11/22/19 Allergies Allergy/AdvReac Type Severity Reaction Status Date / Time haloperidol [From Haldol] Allergy Hives Unverified 11/09/19 14:19 General Stated Complaint: PsychEval SHYAM: 2 Review of Systems <Chan Hernandez MD - Last Filed: 11/22/19 08:06> Unobtainable due to mental condition PFS <Chan Hernandez MD - Last Filed: 11/22/19 08:06> Medical History ADHD (Chronic) Unspecified personality disorder (Chronic) Unspecified psychosis (Chronic) Social History Smoking/Tobacco Use Status: Current every day Tobacco Type: cigarettes Alcohol Intake: never Details: patient does not answer most of the questions Do you feel safe at home: Yes Additional Social history: patient lives in a longterm Exam <Chan Hernandez MD - Last Filed: 11/22/19 08:06> Narrative Exam Narrative: Vitals: Afebrile. Tachycardic hypertensive. O2 sats okay. Const: Obese male in NAD. HEENT: NC/AT. Normal facial exam. Eyes: Normal conjunctiva and sclera. Neck: Supple. Trachea midline. Lungs: Normal respiratory effort. Cor: Good radial pulses. GI: Soft. NT/ND. No guarding or rebound. Neuro: Awake and alert. Slow to respond. Soft speech is appropriate. Normal gait. Cranial nerves II - XII grossly intact. No gross motor or sensory deficit. Ext: No C/C/E. Psych: Poor eye contact. Speech difficulty hearing. Denies SI or HI currently. Expresses passive suicidal thoughts and not wanting to live. Course <Chan Hernandez MD - Last Filed: 11/22/19 08:06> Vital Signs Vital signs: Vital Signs Pulse 118 H 11/22/19 07:22 Respiratory Rate 11/22/19 07:22 Blood Pressure 153/104 H 11/22/19 07:22 Pulse Oximetry 94 L 11/22/19 07:22 Pulse 118 H 11/22/19 07:22 Respiratory Rate 20 11/22/19 07:22 Respiratory Effort Non-Labored 11/22/19 07:35 Blood Pressure 153/104 H 11/22/19 07:22 Blood Pressure Position Sitting 11/22/19 07:22 Pulse Oximetry 94 L 11/22/19 07:22
--- NOTE | 2019-11-22 08:17 | NUR.NOTE ---
Nursing Note: Patient requested to use the restroom, when arrived at the restroom patient stated he didn't need to use the restroom. Patient redirected back to room
--- NOTE | 2019-11-22 08:25 | NUR.NOTE ---
Addendum entered by Jonathan Real 11/22/19 08:26: Patient was redirected and Doctor was notified Original Note: Nursing Note: Patient requested to smoke a cig
--- NOTE | 2019-11-22 08:43 | NUR.NOTE ---
Nursing Note: Patient ignored and spoke quietly with care management.
--- NOTE | 2019-11-22 08:47 | NUR.NOTE ---
Nursing Note: patient was given another cola with ice in paper cup
--- NOTE | 2019-11-22 09:17 | NUR.NOTE ---
Nursing Note:Patient states I would like to talk to someone about meds at my discharge Nurse was Notified of this statement.
[2019-11-22] MEDS: Nicotine 2 MG LOZG SUC (09:35)
--- NOTE | 2019-11-22 09:38 | CMSP_ITS ---
- If Service Date Differs Date of service: 11/22/19 Time of Service: 09:00 Care Management Safety Plan Chief Complaint: Jose is a 34 year old male who is brought to the emergency department by [facility] after showing up at the police department and reporting not wanting to live. Jose was recently discharged from [facility] where he was admitted for psychiatric stabilization. He reports since his discharge from [place], he has been staying at a local motel. Jose is guarded and ignores most questions asked of him. Jose meets with Stormy, [facility] crisis screener, for a telehealth evaluation, during which he denies suicidal or homicidal ideation. Jose is deemed not to require psychiatric hospitalization and is subsequently discharged from [facility]. VOLUNTARY FOR INPATIENT PSYCHIATRIC STABILIZATION. Patient is appropriate in all interactions since arriving at [facility]; Patient has demonstrated appropriate coping and communication skills, has articulated his needs and concerns and is fully engaged during staff interactions. Safety plan has been established with patient, and care team, to adhere to patient goals, identify restrictions based on behavioral status, address nutrition, and determine allowed personal belongings, tools for hygiene and personal care. Determine level of activity including ambulation, level of supervision, visitors, and determine privileges based on behaviors and level of engagement by patient. SAFETY PLAN: 1. Will remain on suicide precautions and in paper clothes 2. Will remain in room under direct supervision of one-on-one staff at all times provided by [employer]; FISH, [employer] PARAPROFESSION[employer] speeder machine operator. 3. May have paper cups, plates, finger foods as well as a cardboard spoon with which to eat meals. 4. Follow [facility] Management of the Admitted Behavioral Health Patient policy. 5. Comfort bath system only. 6. No personal belongings 7. Visitors-No visitors at this time 8. Activities: None at this time. 9. Bathroom privileges: While in the ED, must be accompanied by staff. If patient is moved to Med/Surg, he will be allowed to use the bathroom in his room without supervision. 10. Phone: No phone privileges at this time. 11. Due to VOLUNTARY status, if patient wishes to leave [facility], the [facility] biofuels plant construction worker must be contacted to re-evaluate patient prior to patient exiting the building. Patient is currently voluntarily at [facility] and seeking inpatient admission when a bed becomes available. [facility] Perfect Binder Feeder Offbearer will continue seeking placement. Please contact the Civil Engineering Manager Certified Detention Deputy ([phone]) and [facility] Perfect Binder Feeder Offbearer ([phone]) for any needed changes in the Safety Plan. Safety plan has been provided to interdepartmental care team.
[2019-11-22 10:24] LABS: *AMPHETAMINES SCREEN URINE Negative (Negative); *BARBITURATES SCREEN URINE Negative (Negative); *BENZODIAZEPINES SCREEN URINE Negative (Negative); Cannabinoids THC Negative (Negative); Cocaine Screen,Urine Negative (Negative); METHADONE URINE SCREEN POSITIVE (Negative); OPIATES URINE SCREEN Negative (Negative)
[2019-11-22 10:27] LABS: Tricyclic Antidepressants Negative (Negative)
--- NOTE | 2019-11-22 11:05 | PDOC.MHCN_ITS ---
Date of service: 11/22/19 Time of Service: 09:30 Mental Health Crisis Note Presenting Issue How did you arrive at the ED and why did you come: Clt arrived at ER because he felt like he was going to . ER doctor said the clt made some loose SI statements. Precipitating Factors The clt denied any SI or HI. The clt affect was flat and a reluctance to engage. Somewhat guarded. Disposition BEHAVIOR: Clt was cooperative. EYE CONTACT: Eye contact was good as possible because of I-Pad. MOOD: Somewhat guarded with possible paranoia AFFECT: Flat APPETITE: N/A SLEEP(trouble falling/staying asleep: N/A Plan I was planning on working with the clt to get connected to supportive services but clt chose to leave the ER. Clt did sign a series of releases before he left for [employer], [employer], and [employer]. Present whereabouts unknown.
== END 2019-11-22 10:35 | disposition home or self-care (01) ==
PROVIDERS: Emergency Provider Emergency Medicine
DX: F32.89 Other specified depressive episodes (principal); R45.851 Suicidal ideations
CPT/HCPCS: 36415; 80053; 80307; 99284; 80320; 80329; 85025; 99283

== ENCOUNTER 2019-11-22 14:13 | Emergency (ER) | payer MEDICAID, SELFPAY ==
[2019-11-22 13:38] VITALS: BP 141/76; PULSE 130; RESP 20; TEMP 36.6; O2SAT 94
[2019-11-22] MEDS: LORazepam 2 MG/ML VIAL IM (13:45)
--- NOTE | 2019-11-22 13:54 | W.ED.GENAD ---
Discharge Plan Disposition Patient Disposition: MARITZA RODRIGUEZ ([facility]) Condition: Serious Discharge Details Chief Complaint: PsychEval Clinical Impression: Partial traumatic amputation of penis, Acute psychosis, Intentional self-harm Primary Care Provider: None,None ED Provider: Danielito Stacy Home Meds and New Rx's Prescriptions: No Action perphenazine 8 mg Tablet 8 mg QHS RF: 0 fluticasone prp-sod.chl,bicarb 50 mcg- 0.9 % Kit,Honaker Suspension And Honaker 1 ea INTRANASAL BID RF: 0 gabapentin 600 mg tablet 600 mg PO TID RF: 0 trazodone 100 mg tablet 100 mg PO .QHS RF: 0 perphenazine 4 mg tablet 4 mg PO DAILY PRNRF: 0 ibuprofen 600 mg tablet 600 mg PO PRN PRNRF: 0 loratadine 10 mg tablet 10 mg PO DAILY RF: 0 bupropion HCl 300 mg tablet extended release 24 hr 300 mg PO DAILY RF: 0 nicotine (polacrilex) 4 mg gum 4 mg RF: 0 albuterol sulfate 1.25 mg/3 mL solution for nebulization BID PRNRF: 0 gabapentin 600 mg Tablet 1,200 mg PO .QHS RF: 0 Trilafon 8 mg PO .QHS RF: 0 Trilafon 4 mg PO DAILY RF: 0 methadone 5 mg/5 mL Solution 110 mg PO DAILY RF: 0 Discharge Data Discharge Date/Time-TO BE ENTERED AT DEPARTURE: 11/22/19 17:17 Medical Decision Making 14:00 -- 34-year-old male with history of unspecified psychosis, unspecified personality disorder, borderline personality disorder, here in law enforcement custody after having been found outside convenience store bleeding from his penis. Patient apparently intentionally self amputated the distal tip of his penis. Patient having some bleeding from wound. Wound dressed with gauze wrap. Tip of penis is approximately 2 cm was placed on ice. I called and spoke with Dr. Hewitt who will evaluate the patient. One-to-one clinical patient observer has been initiated. I contacted crisis screener for initiation of EE process. I called care management to request. Patient requesting anxiolytic. I initially gave Ativan 2 mg IM. On reassessment he continues to have significant anxiety. We will give additional Ativan 1 mg orally. 1602 --Dr. Hewitt evaluated the patient and feels patient will likely need repair of glans penis and urethral repair. This is not something we can perform at [facility] and recommends transfer to a tertiary care facility. I called [facility] transfer center to request transfer and awaiting callback. [id number] --spoke with urology at [facility] who agrees with transfer, recommends Goyal catheter replaced, ED physician to accept. , emergency medicine called to accept the patient. Patient remove dressing that was initially applied to penis and was again bleeding all over the room. He started picking at his glans penis and the wound. He removed blood clots and was wiping the blood on his face, forehead and eating the blood clots. Patient could not be de-escalated and a code zuniga was called. Patient was placed in four-point restraints for his own protection. After restraint application I did discuss reason for restraints with the patient. Dr. Hewitt again assisted with care by placing Goyal catheter and rewrapping penis. Patient refusing COVID-19 screening. EE process is pending at time of transfer and will need to be continued at [facility]. Patient does not currently have decisional making capacity. HPI General Mode of arrival: EMS. Date/Time Provider Initiated Documentation: 11/22/19 14:18. Limitations to Documentation: no limitations. Information obtained by: patient and EMS. HPI Narrative: 34-year-old male with history of depression, ADHD, acute psychosis, borderline personality disorder, suicidal ideation in the past, recent hospitalization at [facility] for psychiatric illness, recently seen here in the emergency department earlier today and cleared by crisis screener for discharge, returns now having apparently intentionally amputating his penis. EMS note patient was bleeding at scene. Gauze applied and bleeding was controlled. Patient is poor historian and history and review of systems is limited secondary to him not being forthcoming. Related Data Home Medications Medication Instructions Recorded Confirmed Trilafon 4 mg PO DAILY 11/10/19 Trilafon 8 mg PO .QHS 11/10/19 albuterol sulfate BID PRN 11/10/19 bupropion HCl 300 mg PO DAILY 11/10/19 11/22/19 gabapentin 1,200 mg PO .QHS 11/10/19 11/22/19 gabapentin 600 mg PO TID 11/10/19 11/22/19 ibuprofen 600 mg PO PRN PRN 11/10/19 11/22/19 loratadine 10 mg PO DAILY 11/10/19 11/22/19 methadone 110 mg PO DAILY 11/10/19 11/10/19 nicotine (polacrilex) 4 mg 11/10/19 perphenazine 4 mg PO DAILY PRN 11/10/19 11/22/19 trazodone 100 mg PO .QHS 11/10/19 11/22/19 fluticasone prp-sod.chl,bicarb 1 ea INTRANASAL BID 11/22/19 11/22/19 perphenazine 8 mg QHS 11/22/19 11/22/19 Allergies Allergy/AdvReac Type Severity Reaction Status Date / Time haloperidol [From Haldol] Allergy Hives Unverified 11/09/19 14:19 General Stated Complaint: PsychEval SHYAM: 2 Review of Systems Unobtainable due to mental status [facility] Medical History ADHD (Chronic) Unspecified personality disorder (Chronic) Unspecified psychosis (Chronic) Social History Smoking/Tobacco Use Status: Current every day Tobacco Type: cigarettes Alcohol Intake: never Details: patient does not answer most of the questions Do you feel safe at home: Yes Additional Social history: patient lives in a penitentiary Exam Const General: cooperative and no acute distress HENMT Mouth: moist mucous membranes Eyes Conjunctivae: normal conjunctivae Sclera: normal sclerae Neck Neck: trachea midline Resp Auscultation: clear to auscultation bilaterally, no rales, no rhonchi and no wheezes Cardio Rate: regular rate and not tachycardic Rhythm: regular rhythm GI Palpation: soft, not firm, no guarding, no masses, not rigid and nontender Penis: other (Partial amputation distal glans penis with active bleeding) Testes: normal Skin General skin exam: no rashes or lesions noted Neuro General: patient alert, patient awake and tone normal Extrem General: no edema Psych Speech and Movement: speech clear Mood: anxious mood Affect: other (Blood) Attitude: guarded Insight: limited Judgment: poor Course Vital Signs Vital signs: Vital Signs Temperature 36.6 C 11/22/19 13:38 Pulse 130 H 11/22/19 13:38 Respiratory Rate 11/22/19 13:38 Blood Pressure 141/76 H 11/22/19 13:38 Pulse Oximetry 94 L 11/22/19 13:38 Temperature 36.6 C 11/22/19 13:38 Temperature Source Tympanic 11/22/19 13:38 Pulse 130 H 11/22/19 13:38 Respiratory Rate 20 11/22/19 13:38 Blood Pressure 141/76 H 11/22/19 13:38 Blood Pressure Position Standing 11/22/19 13:38 Pulse Oximetry 94 L 11/22/19 13:38 Oxygen Delivery Method Room Air 11/22/19 13:38 Oxygen Flow Rate 0 11/22/19 13:38 Restraint Face to Face Time of Face to Face Face to Face: Time of Face to Face: 15:10 Patient's Immediate Situation Requiring Restraints/Seclusion: Harm to Patient Patient Response to Restraints: Tolerating without Problems Need for Continuation of Restraints Has Been Assessed: Restraints Continued 2nd Face to Face: Time of Face to Face: 17:05 Patient's Immediate Situation Requiring Restraints/Seclusion: Harm to Patient Patient Response to Restraints: Tolerating without Problems Need for Continuation of Restraints Has Been Assessed: Restraints Continued
--- NOTE | 2019-11-22 13:55 | NUR.NOTE ---
Tip of patient's penis placed in a plastic bag. Plastic bag is on ice outside of patient's room.
[2019-11-22] MEDS: LORazepam 1 MG TAB PO (14:12)
--- NOTE | 2019-11-22 14:20 | NUR.NOTE ---
patient seen by at [id number]
--- NOTE | 2019-11-22 14:50 | NUR.NOTE ---
patient removed dressing to penis and started to dig around penis. patient started to lick blood of fingers and wipe blood off on his forehead. patient unable to be re-directed , MD Stacy aware, jacinta easton called, patient placed in 4 point restraints. Nursing Note:
--- NOTE | 2019-11-22 14:55 | CMSP_ITS ---
- If Service Date Differs Date of service: 11/22/19 Time of Service: 14:55 Care Management Safety Plan Chief Complaint: Jose is a homeless 34 year old male brought to the emergency department by [facility] after he cuts off the tip of his penis with a knife. Jose was reportedly found outside of a deli by [facility] Police who observed him to be bleeding from his genitals. Police contacted EMS and Jose was subsequently transported to the emergency department. This is Jose's second visit to [facility] today. Police brought him to the hospital this morning after he showed up at the police department saying he no longer wanted to live. Jose was assessed by [facility] crisis screener. During the evaluation, Jose denied suicidal or homicidal ideation and did not appear to be experiencing psychosis. The [facility] screener felt he did not meet criteria for hospitalization at that time. Jose was subsequently discharged from the hospital. CM will respond to ED to assess patient after patient has been medically cleared and assessed by screener. If screener deems patient meets criteria for psychiatric stabilization CM will facilitate interdepartmental huddle with [facility] screener for safety planning considerations and meet with patient to review [facility] policy and safety plan, establish individual wishes for treatment and maintain patient rights. In the interim; please note safety plan below to guide patient care while awaiting further assessment in the ED. SAFETY PLAN: 1. Will remain on suicide precautions and in paper clothes. 2. Will remain in room under direct supervision of one-on-one staff at all times provided by [employer], [employer] NUT DEHYDRATOR OPERATOR nuclear control operator. 3. May have paper cups, plates, finger foods as well as a cardboard spoon with which to eat meals. 4. Follow [facility] Management of the Admitted Behavioral Health Patient policy. 5. Comfort bath system only. 6. No personal belongings 7. No visitors. 8. Activities: None at this time. 8. No telephone privileges at this time. 9. Due to VOLUNTARY status, if patient wishes to leave [facility], the [facility] workers compensation examiner must be contacted to evaluate patient prior to patient exiting the building. If deemed appropriate for inpatient psychiatric care, safety plan will be established with patient, and care team, to adhere to patient goals, identify restrictions based on behavioral status, address nutrition, and determine allowed personal belongings, tools for hygiene and personal care. As well plan will determine level of activity including ambulation, level of supervision, visitors, and determine privileges based on level of acuity, behaviors and level of engagement by patient.
[2019-11-22 15:26] LABS: *AMPHETAMINES SCREEN URINE Negative (Negative); *BARBITURATES SCREEN URINE Negative (Negative); *BENZODIAZEPINES SCREEN URINE Negative (Negative); Cannabinoids THC Negative (Negative); Cocaine Screen,Urine Negative (Negative); METHADONE URINE SCREEN POSITIVE (Negative); OPIATES URINE SCREEN Negative (Negative)
[2019-11-22 15:29] LABS: Tricyclic Antidepressants Negative (Negative)
[2019-11-22 16:03] LABS: Abs Immature Grans 0.04 k/cumm (0.0-0.09); Absolute Basophil Count 0.03 k/cumm (0.0-0.2); Absolute Lymphocyte Count 0.98 k/cumm (1.2-3.4); Absolute Monocyte Count 0.86 k/cumm (0.11-0.7); Basophils % 0.2; HCT 43.3 % (40.0-50.0); HGB 14.5 g/dL (13.5-17.5); Immature Grans % 0.3 %; Lymphocytes % 6.6; Mean Corp. HGB Concentration 33.5 g/dL (32.0-36.0); Mean Corpuscular Volume 86.6 fL (80-95); Mean Platelet Volume 9.3 fL (8.0-11.0); Monocytes % 5.8; Neutrophils % 87.1; Platelet Count 334 x1000/uL (130-400); RBC Distribution Width 13.1 % (11.8-14.1); White Blood Cell Count 14.88 k/cumm (4.4-10.8)
[2019-11-22 16:04] LABS: Absolute Neutrophil Count 12.96 k/cumm (1.2-6.7)
[2019-11-22 16:19] LABS: ALT 176 U/L (16-63); AST 46 U/L (15-37); Albumin 4.1 g/dL (3.4-5.0); Alkaline Phosphatase 95 U/L (46-116); Anion Gap 9.2 mmol/L (3-11); BUN 18 mg/dL (7-18); Bilirubin, Total 0.9 mg/dL (0.2-1.0); CO2 28.8 mmol/L (21.0-32.0); CREATININE 1.14 mg/dL (0.70-1.30); Calcium 9.2 mg/dL (8.5-10.1); Chloride 100 mmol/L (98-107); Glucose 148 mg/dL (74-106); Potassium 3.9 mmol/L (3.5-5.1); Sodium 138 mmol/L (136-145); Total Protein 8.5 g/dL (6.4-8.2)
[2019-11-22 16:26] LABS: Salicylate 2.8 mg/dL (2.8-20.0)
[2019-11-22 16:39] LABS: Acetaminophen < 2 ug/mL (10-30)
[2019-11-22 16:43] LABS: ETHANOL BLOOD < 3.0 mg/dL (<3)
[2019-11-22] MEDS: LORazepam 2 MG/ML VIAL 1 MG IVP (17:20)
== END 2019-11-22 17:17 | disposition short-term general hospital (02) ==
PROVIDERS: Emergency Provider Student in an Organized Health Care Education/Training Program
DX: S38.2 Traumatic amputation of external genital organs (principal); X78.8XXA Intentional self-harm by other sharp object, initial encounter; F60.3 Borderline personality disorder; F23 Brief psychotic disorder; Z78.1 Physical restraint status
CPT/HCPCS: 36415; 51702; 80053; 80307; 90471; 96372; 96374; 99285; U0003; 80320; 80329; 85025; J2060